=== PATIENT | female | born 1990 | race Caucasian/White ===

== ENCOUNTER 2019-09-27 03:57 | Emergency (ER) | payer SELFPAY ==
[~2019-09-27] VITALS: Ht 165.1 cm; Wt 70.3 kg
[2019-09-27] MEDS ORDERED: SODIUM CHLORIDE 0.9% 1000ML 1,000 ML IV STA ×3 (04:31)
[2019-09-27] MEDS ORDERED: ONDANSETRON HCL INJ 2MG/ML 2ML 2 MG/ML VIAL IV STA (04:31)
[2019-09-27] MEDS ORDERED: ONDANSETRON HCL INJ 2MG/ML 2ML 2 MG/ML VIAL ONE (04:39)
[2019-09-27] MEDS ORDERED: SODIUM CHLORIDE 0.9% 1000ML 3,000 ML ONE (04:40)
[2019-09-27] MEDS ORDERED: SODIUM CHLORIDE FLUSH 10 ML SYR INJ PRN (04:45)
[2019-09-27] MEDS ORDERED: ONDANSETRON ODT8 MG PO (05:16)
--- NOTE | 2019-09-27 05:16 | Emergency Department Note ---
History of Present Illnes History of Present Illness Chief Complaint: n/v History of Present Illness This is a 28 year old female. was doing well prior to this. Historian: Patient Arrival Mode: Car History limited by: condition of the patient (n) Onset (how long ago): day(s) (1) Location: n/a Quality: n/a Radiation: Reports non-radiation Severity: severe Onset quality: sudden Duration (how long): day(s) (1) Progression: unchanged Chronicity: new Context: Denies recent illness, Denies recent surgery, Denies recent immobilization, Denies recent travel, Denies trauma/injury, Denies new medications, Denies hx of DVT/PE, Denies non-compliance w/ medications Relieving factors: none Exacerbating factors: none Associated symptoms: Reports nausea/vomiting Past Medical/Family History Physician Review I have reviewed the patient's past medical and family history. Any updates have been documented here. Past Medical History Recent Fever: No Clinical Suspicion of Infectio: No New/Unexplained Change in Ment: No Past Medical History: Hypothyroidism, GERD Past Surgical History: None Social History Smoking Cessation: Never Smoker Alcohol Use: Daily Any Illegal Drug Use: No TB Exposure/Symptoms: No Physically hurt or threatened: No Other Any Pre-Existing Lines (PICC,: No Is patient up to date on immun: No Last Flu: NONE Last Pneumovax: NA Review of Systems Review of Systems Constitutional: Reports no symptoms EENTM: Reports no symptoms Cardiovascular: Reports no symptoms Respiratory: Reports no symptoms Gastrointestinal: Reports as per HPI, Reports nausea, Reports vomiting Genitourinary: Reports no symptoms Musculoskeletal: Reports no symptoms Integumentary: Reports no symptoms Neurological: Reports no symptoms Psychological: Reports no symptoms Endocrine: Reports no symptoms Hematological/Lymphatic: Reports no symptoms Review of other systems: All other systems negative Physical Exam Related Data Triage Vital Signs Vital Signs Date Time Temp Pulse Resp B/P (MAP) Pulse Ox O2 Delivery O2 Flow Rate FiO2 09/27/19 04:08 96.4 140 18 142/88 98 Vital signs reviewed: Yes Physical Exam CONSTITUTIONAL Constitutional: Present well-developed, Present well-nourished HENT HENT: Present normocephalic, Present atraumatic, Present nose normal, Present other (dry mm) HENT L/R: Present left ext ear normal, Present right ext ear normal EYES Eyes: Reports PERRL, Reports conjunctivae normal NECK Neck: Present ROM normal, Present supple PULMONARY Pulmonary: Present effort normal, Present breath sounds normal CARDIOVASCULAR Cardiovascular: Present regular rhythm, Present heart sounds normal, Present capillary refill normal, Present tachycardia GASTROINTESTINAL Abdominal: Present soft, Present nontender, Present bowel sounds normal GENITOURINARY Genitourinary: Present exam deferred SKIN Skin: Present warm, Present dry MUSCULOSKELETAL Musculoskeletal: Present ROM normal NEUROLOGICAL Neurological: Present alert, Present oriented x 3, Present no gross motor or sensory deficits PSYCHOLOGICAL Psychological: Present mood/affect normal, Present judgement normal Results Laboratory Lab results reviewed: Yes (cbc/cmp/lft normal except [id number], mild elevated lfts) Assessment & Plan Medical Decision Making MDM take rxed med. drink plenty of water Assessment & Plan Final Impression: (1) Dehydration Depart Disposition: HOME, SELF-CARE Last Vital Signs Date Time Temp Pulse Resp B/P (MAP) Pulse Ox O2 Delivery O2 Flow Rate FiO2 09/27/19 04:08 96.4 140 18 142/88 98 Home Meds Active Scripts Ondansetron (ONDANSETRON ODT) 8 Mg Tab.rapdis, 8 MG PO Q6H PRN for NAUSEA AND VOMITING, #20 1 Refill Prov:SVEN CHOWDARY 09/27/19 Medications in the ED Ondansetron HCl 8 mg STK-MED ONCE .ROUTE ; Start 09/27/19 at 04:39; Stop 09/27/19 at 04:35; Status DC Sodium Chloride 3,000 ml @ ud STK-MED ONCE .ROUTE ; Start 09/27/19 at 04:40; Stop 09/27/19 at 04:35; Status DC Sodium Chloride 10 ml PRN PRN INJ IV SITE FLUSH Last administered on 09/27/19at 04:30; Admin Dose 10 ML; Start 09/27/19 at 04:45; Stop 10/27/19 at 04:44; Status UNV Ondansetron HCl 8 mg NOW STAT IV Last administered on 09/27/19at 04:37; Admin Dose 8 MG; Start 09/27/19 at 04:31; Stop 09/27/19 at 04:32; Status UNV Sodium Chloride 1,000 ml @ 2,000 mls/hr Q30M STAT IV Last administered on 09/27/19at 04:35; Admin Dose 2,000 MLS/HR; Start 09/27/19 at 04:31; Stop 09/27/19 at 05:00 Sodium Chloride 1,000 ml @ 2,000 mls/hr Q30M STAT IV ; Start 09/27/19 at 04:31; Stop 09/27/19 at 05:00 Sodium Chloride 1,000 ml @ 2,000 mls/hr Q30M STAT IV ; Start 09/27/19 at 04:31; Stop 09/27/19 at 05:00 SVEN CHOWDARY Sep 27, 2019 05:16
--- NOTE | 2019-09-27 05:59 | NUR ---
PT C/O NAUSEA HAS COME BACK. WILL INFORM MD
[2019-09-27] MEDS ORDERED: PROMETHAZINE 25MG/ NS 50ML (IV) IV ONE (06:00)
--- NOTE | 2019-09-27 06:00 | NUR ---
REC'D VOICE ORDER FOR PHENERGAN 25MG ADDED TO LITER BAG OF SALINE THAT IS HANGING NOW
[2019-09-27] MEDS ORDERED: PROMETHAZINE HCL (IM) 25 MG/ML VIAL ONE (06:09)
[2019-09-27 06:38] VITALS: BP 148/80
== END 2019-09-27 06:37 | disposition home or self-care (01) ==
LOC: FSED 03:57
DX: R11.2 Nausea with vomiting, unspecified (principal); E86.0 Dehydration; E03.9 Hypothyroidism, unspecified; K21.9 Gastro-esophageal reflux disease without esophagitis
CPT/HCPCS: 80053; 80076; 85025; 96374; 99283; J2405; J2550; J7030